=== PATIENT | female | born 1965 | race Caucasian/White ===

== ENCOUNTER 2017-11-28 14:01 | Emergency (ER) | payer MEDICAID ==
[~2017-11-28 14:01] MED LIST: ATEN-41 PO; CLON1TAB4 PO
[2017-11-28 14:31] VITALS: BP_SYST 127
[2017-11-28 15:10] LABS: BASOPHILS % (AUTO) 0.3 % (0.0-2.0); EOSINOPHILS # (AUTO) 0.1 K/uL (0.0-0.4); HEMATOCRIT 47.8 % (36-48); HEMOGLOBIN 15.6 g/dL (12.0-16.0); LYMPHOCYTES # (AUTO) 2.7 K/uL (1.0-5.5); LYMPHOCYTES % (AUTO) 35.3 % (20.5-51.5); MEAN CORPUSCULAR HEMOGLOBIN 31 pg (27-31); MEAN CORPUSCULAR HGB CONC 33 % (32-36); MEAN CORPUSCULAR VOLUME 96 fL (79.0-98.0); MONOCYTES # (AUTO) 0.7 K/uL (0.0-1.0); MONOCYTES % (AUTO) 9.4 % (1.7-9.3); NEUTROPHILS # (AUTO) 4.1 K/uL (1.8-7.7); PLATELET COUNT (AUTO) 259 K/uL (130-430); RED BLOOD CELL COUNT(AUTO) 5.01 MIL/uL (4.2-6.2); WHITE BLOOD COUNT (AUTO) 7.6 K/uL (4.8-10.8)
[2017-11-28 15:30] LABS: CALCIUM 9.4 mg/dL (8.4-11.0); CREATININE 0.57 mg/dL (0.55-1.30); POTASSIUM 3.7 mmol/L (3.5-5.1)
[2017-11-28 15:35] LABS: ALBUMIN 4.1 g/dL (3.4-4.8); TOTAL BILIRUBIN 0.4 mg/dL (0.0-1.0)
[2017-11-28 15:48] LABS: BILIRUBIN,URINE NEGATIVE (NEGATIVE); BLOOD, URINE NEGATIVE (NEGATIVE); CLARITY/URINE CLEAR (CLEAR); COLOR,URINE STRAW (YELLOW); GLUCOSE,URINE NEGATIVE (NEGATIVE); KETONES,URINE NEGATIVE (NEGATIVE); LEUKOCYTE ESTERASE ,URINE NEGATIVE (NEGATIVE); NITRITE, URINE NEGATIVE (NEGATIVE); PROTEIN URINE NEGATIVE (NEGATIVE); UROBILINOGEN,URINE 0.2 (0.2-1.0)
[2017-11-28] MEDS ORDERED: clonazePAM 0.5 MG TABLET PO ONE (16:00)
[2017-11-28 16:55] VITALS: BP_SYST 124
== END 2017-11-28 16:53 | disposition home or self-care (01) ==
LOC: SED 14:01
DX: F41.9 Anxiety disorder, unspecified (principal); I10 Essential (primary) hypertension
CPT/HCPCS: 36415; 80053; 81003; 83690-TC; 85025; 99284

== ENCOUNTER 2018-01-07 09:43 | Emergency (ER) | payer MEDICAID ==
[~2018-01-07] VITALS: Ht 165.1 cm; Wt 89.8 kg
[2018-01-07 09:47] VITALS: BP_SYST 136
[2018-01-07 10:27] VITALS: BP_SYST 130
== END 2018-01-07 10:27 | disposition home or self-care (01) ==
LOC: SED 09:43
DX: K52.9 Noninfective gastroenteritis and colitis, unspecified (principal); F41.9 Anxiety disorder, unspecified; I10 Essential (primary) hypertension; F17.210 Nicotine dependence, cigarettes, uncomplicated; Z90.49 Acquired absence of other specified parts of digestive tract; Z98.51 Tubal ligation status
CPT/HCPCS: 99283

== ENCOUNTER 2018-01-20 09:40 | Emergency (ER) | payer MEDICAID ==
[~2018-01-20] VITALS: Ht 162.6 cm; Wt 78.0 kg
[2018-01-20] MEDS ORDERED: NACL 0.9% 1,000 ML IV ONE (09:48)
[2018-01-20 09:49] VITALS: BP_SYST 140
[2018-01-20 10:21] LABS: BASOPHILS % (AUTO) 0.5 % (0.0-2.0); EOSINOPHILS # (AUTO) 0.1 K/uL (0.0-0.4); EOSINOPHILS % (AUTO) 0.7 % (0.0-4.0); HEMATOCRIT 49.1 % (36-48); HEMOGLOBIN 16.1 g/dL (12.0-16.0); LYMPHOCYTES # (AUTO) 2.2 K/uL (1.0-5.5); LYMPHOCYTES % (AUTO) 28.2 % (20.5-51.5); MEAN CORPUSCULAR HEMOGLOBIN 31 pg (27-31); MEAN CORPUSCULAR HGB CONC 33 % (32-36); MEAN CORPUSCULAR VOLUME 95 fL (79.0-98.0); MONOCYTES # (AUTO) 0.5 K/uL (0.0-1.0); MONOCYTES % (AUTO) 6.3 % (1.7-9.3); NEUTROPHILS % (AUTO) 64.3 % (40.0-70.0); PLATELET COUNT (AUTO) 207 K/uL (130-430); RED BLOOD CELL COUNT(AUTO) 5.18 MIL/uL (4.2-6.2); RED CELL DISTRIBUTION WIDTH 13.1 % (9.0-15.0); WHITE BLOOD COUNT (AUTO) 7.8 K/uL (4.8-10.8)
[2018-01-20 10:30] LABS: BILIRUBIN,URINE NEGATIVE (NEGATIVE); BLOOD, URINE NEGATIVE (NEGATIVE); CLARITY/URINE SL HAZY (CLEAR); COLOR,URINE YELLOW (YELLOW); GLUCOSE,URINE NEGATIVE (NEGATIVE); KETONES,URINE NEGATIVE (NEGATIVE); LEUKOCYTE ESTERASE ,URINE NEGATIVE (NEGATIVE); NITRITE, URINE NEGATIVE (NEGATIVE); PH,URINE 5.5 (5.0-8.0); PROTEIN URINE NEGATIVE (NEGATIVE); UROBILINOGEN,URINE 0.2 (0.2-1.0)
[2018-01-20 10:38] LABS: ANION GAP 5 (5-15); CALCIUM 9.4 mg/dL (8.4-11.0); CHLORIDE 98 mmol/L (98-107); CREATININE 0.77 mg/dL (0.55-1.30); GLUCOSE 97 mg/dL (70-99); SODIUM SERUM 134 mmol/L (136-145); UREA NITROGEN, BLOOD 7 mg/dL (8-21)
[2018-01-20 10:40] LABS: ALANINE AMINOTRANSFERASE 31 U/L (12-78); ALBUMIN 4.2 g/dL (3.4-4.8); AMYLASE 42 U/L (0-100); ASPARTATE AMINOTRANSFERASE 21 U/L (10-37); GFR AFRICAN AMERICAN 101 mL/min (>90); LIPASE 57 U/L (73-393); TOTAL BILIRUBIN 0.5 mg/dL (0.0-1.0)
[2018-01-20 10:42] LABS: ALCOHOL, BLOOD < 3 mg/dL (<10)
[2018-01-20 11:05] LABS: BARBITURATE, URINE NEGATIVE (NEG <=200); BENZODIAZEPINE, URINE POSITIVE (NEG <=150); METHAMPHETAMINES SCREEN,URINE NEGATIVE (NEG <=500); URINE AMPHETAMINE NEGATIVE (NEG <=500); URINE METHADONE NEGATIVE (NEG <=200)
[2018-01-20 11:06] LABS: CANNABINOID, URINE NEGATIVE (NEG <=50); COCAINE, URINE NEGATIVE (NEG <=150); OPIATE, URINE NEGATIVE (NEG <=100); PHENCYCLIDINE SCREEN,URINE NEGATIVE (NEG <=25); UR TRICYCLIC ANTIDEPRESSANTS NEGATIVE (NEG <=300); URINE OXYCODONE SCREEN NEGATIVE (NEG <=100); URINE PROPOXYPHENE SCREEN NEGATIVE (NEG <=300)
[2018-01-20 11:42] VITALS: BP_SYST 137
== END 2018-01-20 11:40 | disposition home or self-care (01) ==
LOC: SED 09:40
DX: J11.1 Influenza due to unidentified influenza virus with other respiratory manifestations (principal); F41.9 Anxiety disorder, unspecified; I10 Essential (primary) hypertension; E78.5 Hyperlipidemia, unspecified; Z76.5 Malingerer [conscious simulation]; Z90.49 Acquired absence of other specified parts of digestive tract; Z90.710 Acquired absence of both cervix and uterus; Z98.51 Tubal ligation status
CPT/HCPCS: 36415; 80053; 80307; 81003; 82150; 83690; 84484; 85025; 86710; 96360; 99284; G0482; J7030

== ENCOUNTER 2018-06-18 16:33 | Emergency (ER) | payer MEDICAID ==
[~2018-06-18] VITALS: Ht 162.6 cm; Wt 95.3 kg
[~2018-06-18 16:33] MED LIST changes: -CLON1TAB4 PO; +CLON1TAB5 PO
[2018-06-18 16:45] VITALS: BP_SYST 116
[2018-06-18] MEDS ORDERED: KETOROLAC TROMETHAMINE 60 MG/2 ML VIAL IM ONE (17:30)
[2018-06-18 17:32] LABS: BILIRUBIN,URINE NEGATIVE (NEGATIVE); BLOOD, URINE NEGATIVE (NEGATIVE); CLARITY/URINE CLEAR (CLEAR); COLOR,URINE YELLOW (YELLOW); GLUCOSE,URINE NEGATIVE (NEGATIVE); KETONES,URINE NEGATIVE (NEGATIVE); LEUKOCYTE ESTERASE ,URINE NEGATIVE (NEGATIVE); NITRITE, URINE NEGATIVE (NEGATIVE); PH,URINE 5.5 (5.0-8.0); PROTEIN URINE NEGATIVE (NEGATIVE); UROBILINOGEN,URINE 0.2 (0.2-1.0)
[2018-06-18 18:19] VITALS: BP_SYST 114
== END 2018-06-18 18:14 | disposition home or self-care (01) ==
LOC: SED 16:33
DX: G43.709 Chronic migraine without aura, not intractable, without status migrainosus (principal); F41.9 Anxiety disorder, unspecified; E78.5 Hyperlipidemia, unspecified; F17.200 Nicotine dependence, unspecified, uncomplicated; I10 Essential (primary) hypertension
CPT/HCPCS: 81003; 81025; 96372; 99283; J1885

== ENCOUNTER 2018-12-25 09:47 | Emergency (ER) | payer MEDICAID ==
[~2018-12-25] VITALS: Ht 162.6 cm; Wt 81.6 kg
[~2018-12-25 09:47] MED LIST changes: +CLON1TAB12 PO; -CLON1TAB5 PO
[2018-12-25 09:57] VITALS: BP_SYST 154
[2018-12-25] MEDS ORDERED: methylPREDNISolone SOD SUCC/PF 62.5 MG/ML VIAL IVP ONE (10:45)
[2018-12-25] MEDS ORDERED: IPRATROPIUM/ALBUTEROL SULFATE 3 ML AMPUL.NEB (DUONEB) INH ONE ×2 (10:45→12:30)
[2018-12-25 11:18] LABS: HEMATOCRIT 46.7 % (36-48); HEMOGLOBIN 15.4 g/dL (12.0-16.0); MEAN CORPUSCULAR HEMOGLOBIN 32 pg (27-31); MEAN CORPUSCULAR HGB CONC 33 % (32-36); MEAN CORPUSCULAR VOLUME 95 fL (79.0-98.0); NEUTROPHILS % (AUTO) 61.1 % (40.0-70.0); PLATELET COUNT (AUTO) 183 K/uL (130-430); RED CELL DISTRIBUTION WIDTH 13.9 % (9.0-15.0); WHITE BLOOD COUNT (AUTO) 6.6 K/uL (4.8-10.8)
[2018-12-25 11:19] LABS: BASOPHILS # (AUTO) 0.1 K/uL (0.0-0.2); BASOPHILS % (AUTO) 0.8 % (0.0-2.0); EOSINOPHILS # (AUTO) 0.1 K/uL (0.0-0.4); EOSINOPHILS % (AUTO) 1.1 % (0.0-4.0); LYMPHOCYTES # (AUTO) 1.9 K/uL (1.0-5.5); LYMPHOCYTES % (AUTO) 28.9 % (20.5-51.5); MONOCYTES # (AUTO) 0.5 K/uL (0.0-1.0); MONOCYTES % (AUTO) 8.1 % (1.7-9.3)
[2018-12-25 11:24] LABS: ANION GAP 11 (5-15); CALCIUM 10.1 mg/dL (8.4-11.0); CHLORIDE 105 mmol/L (98-107); GLUCOSE 104 mg/dL (70-99); POTASSIUM 3.8 mmol/L (3.5-5.1); SODIUM SERUM 143 mmol/L (136-145); UREA NITROGEN, BLOOD 14 mg/dL (8-21)
[2018-12-25 11:25] LABS: GFR AFRICAN AMERICAN 67 mL/min (>90)
[2018-12-25 11:32] LABS: ALANINE AMINOTRANSFERASE 34 U/L (12-78); ASPARTATE AMINOTRANSFERASE 25 U/L (10-37); TOTAL BILIRUBIN 0.5 mg/dL (0.0-1.0)
[2018-12-25] MEDS ORDERED: KETOROLAC TROMETHAMINE 30 MG VIAL IM ONE (11:45)
[2018-12-25] MEDS ORDERED: KETOROLAC TROMETHAMINE 30 MG VIAL IVP ONE (11:45)
[2018-12-25] MEDS ORDERED: AZITHROMYCIN 250 MG TABLET PO ONE (12:30)
[2018-12-25 13:33] VITALS: BP_SYST 135
== END 2018-12-25 13:33 | disposition home or self-care (01) ==
LOC: SED 09:47
DX: J20.9 Acute bronchitis, unspecified (principal); F17.210 Nicotine dependence, cigarettes, uncomplicated; I25.2 Old myocardial infarction; I10 Essential (primary) hypertension; F41.9 Anxiety disorder, unspecified; E78.5 Hyperlipidemia, unspecified; Z79.899 Other long term (current) drug therapy; Z71.6 Tobacco abuse counseling
CPT/HCPCS: 36415; 71045; 80053; 84484; 85025; 93005; 94664; 96374; 96375; 99284; J1885; J2930; J7620; Q0144

== ENCOUNTER 2019-10-22 16:07 | Emergency (ER) | payer MEDICAID ==
[~2019-10-22] VITALS: Ht 162.6 cm; Wt 72.6 kg
[2019-10-22 16:15] VITALS: BP_SYST 155
--- NOTE | 2019-10-22 16:24 | NUR ---
Patient to ER bed 8 to gown for evaluation. Side rails up. Report given to CELESTE HERNANDEZ
--- NOTE | 2019-10-22 16:32 | NUR ---
Pt brought by self, A&Ox4 , pt presents to ER with bodyaches, anxiety and SOB, skin pink and warm,cap refill <3, VSS.
--- NOTE | 2019-10-22 16:40 | NUR ---
Dr Babb at bedside examining patient
[2019-10-22] MEDS ORDERED: ASPIRIN 81 MG TAB.CHEW PO ONE (17:00)
[2019-10-22] MEDS ORDERED: LORazepam 2 MG/ML VIAL IVP ONE (17:00)
--- NOTE | 2019-10-22 17:15 | NUR ---
Pt medicated as ordered for anxiety,well tolerated.
[2019-10-22 17:43] LABS: BASOPHILS % (AUTO) 0.5 % (0.0-2.0); EOSINOPHILS # (AUTO) 0.1 K/uL (0.0-0.4); EOSINOPHILS % (AUTO) 0.8 % (0.0-4.0); HEMATOCRIT 44.7 % (36-48); HEMOGLOBIN 15.3 g/dL (12.0-16.0); LYMPHOCYTES # (AUTO) 2.8 K/uL (1.0-5.5); LYMPHOCYTES % (AUTO) 38.5 % (20.5-51.5); MEAN CORPUSCULAR HEMOGLOBIN 34 pg (27-31); MEAN CORPUSCULAR HGB CONC 34 % (32-36); MEAN CORPUSCULAR VOLUME 99 fL (79.0-98.0); MONOCYTES # (AUTO) 0.5 K/uL (0.0-1.0); NEUTROPHILS # (AUTO) 3.9 K/uL (1.8-7.7); NEUTROPHILS % (AUTO) 53.2 % (40.0-70.0); PLATELET COUNT (AUTO) 199 K/uL (130-430); RED BLOOD CELL COUNT(AUTO) 4.53 MIL/uL (4.2-6.2); RED CELL DISTRIBUTION WIDTH 13.4 % (9.0-15.0); WHITE BLOOD COUNT (AUTO) 7.4 K/uL (4.8-10.8)
--- NOTE | 2019-10-22 18:05 | NUR ---
Pt speaking in the phone at this time, ROBERTO CARLOS
[2019-10-22 18:14] LABS: ALBUMIN 3.9 g/dL (3.4-4.8); CALCIUM 9.1 mg/dL (8.4-11.0); CREATININE 0.8 mg/dL (0.55-1.30); POTASSIUM 3.4 mmol/L (3.5-5.1); TOTAL BILIRUBIN 0.5 mg/dL (0.0-1.0)
[2019-10-22] MEDS ORDERED: PROCHLORPERAZINE EDISYLATE 10 MG/2 ML VIAL IVP ONE (18:30)
[2019-10-22] MEDS ORDERED: DIPHENOXYLATE HCL/ATROP SULF 2.5 MG TAB PO ONE (18:30)
[2019-10-22] MEDS ORDERED: KETOROLAC TROMETHAMINE 30 MG VIAL IVP ONE (18:30)
[2019-10-22 19:09] VITALS: BP_SYST 144
--- NOTE | 2019-10-22 19:11 | NUR ---
Patient does not wish to proceed with medical care recommended by Dr Babb . Patient given information related to possible complications, up to and including , which could occur as a result of leaving hospital at this time. Patient verbalizes understanding of risks involved leaving against medical advice. Patient has signed AMA form.
== END 2019-10-22 19:09 | disposition left against medical advice (07) ==
LOC: SED 16:07
DX: R07.9 Chest pain, unspecified (principal); R19.7 Diarrhea, unspecified; I10 Essential (primary) hypertension; I25.2 Old myocardial infarction; F41.9 Anxiety disorder, unspecified; F17.210 Nicotine dependence, cigarettes, uncomplicated
CPT/HCPCS: 36415; 71045; 80053; 82550; 83880; 84484; 85025; 93005; 96374; 96375; 99284; J0780; J1885; J2060

== ENCOUNTER 2019-12-09 11:44 | Emergency (ER) | payer MEDICAID ==
[~2019-12-09] VITALS: Ht 162.6 cm; Wt 68.0 kg
[2019-12-09 12:26] VITALS: BP_SYST 122
--- NOTE | 2019-12-09 12:43 | NUR ---
Patient to ER bed 08 to gown for evaluation. Side rails up.
--- NOTE | 2019-12-09 12:44 | NUR ---
Patient arrived in the ED c/o cough and congestion that started 3-4 days ago. Patient also stated she left her Ativan at her sister's house and is now short of 10 pills. Denied any chest pain or shortness of breath. Denied any fevers, nausea, vomiting, or chills. Patient is alert and oriented x4, respirations even and unlabored, speaking in full sentences, ambulating with a steady gait. VSS, pain level 6/10. Informed of wait time. Instructed to notify ED staff for any changes in condition or worsening of symptoms. Patient verbalized understanding.
--- NOTE | 2019-12-09 12:48 | NUR ---
Patient ambulated to the bathroom with a steady gait. Urine specimen collected.
--- NOTE | 2019-12-09 13:25 | NUR ---
ER DAI Mullen at bedside examining patient.
[2019-12-09] MEDS ORDERED: IPRATROPIUM/ALBUTEROL SULFATE 3 ML AMPUL.NEB (DUONEB) INH ONE (13:30)
--- NOTE | 2019-12-09 13:45 | NUR ---
AMA form signed.
[2019-12-09 13:48] VITALS: BP_SYST 122
--- NOTE | 2019-12-09 13:54 | NUR ---
Patient does not wish to proceed with medical care recommended by ER TRUCK [facility]OP Suzanne Mullen. Patient given information related to possible complications, up to and including , which could occur as a result of leaving hospital at this time. Patient verbalizes understanding of risks involved leaving against medical advice. Patient has signed AMA form.
== END 2019-12-09 13:54 | disposition home or self-care (01) ==
LOC: SED 11:44
DX: R05 Cough (principal); F41.9 Anxiety disorder, unspecified; E78.5 Hyperlipidemia, unspecified; I10 Essential (primary) hypertension; F17.210 Nicotine dependence, cigarettes, uncomplicated; Z86.73 Personal history of transient ischemic attack (TIA), and cerebral infarction without residual deficits; Z90.49 Acquired absence of other specified parts of digestive tract; Z90.710 Acquired absence of both cervix and uterus
CPT/HCPCS: 99281; 99283

== ENCOUNTER 2019-12-15 08:00 | Emergency (ER) | payer MEDICAID ==
[~2019-12-15] VITALS: Ht 162.6 cm; Wt 66.7 kg
[2019-12-15 08:10] VITALS: BP_SYST 164
[2019-12-15] MEDS ORDERED: IPRATROPIUM BROM 0.5 MG/2.5 ML VIAL.NEB (ATROVENT) INH ONE (08:44)
[2019-12-15] MEDS ORDERED: ALBUTEROL SULFATE 0.083% 2.5 MG/3 ML VIAL.NEB INH ONE (08:44)
[2019-12-15] MEDS ORDERED: ONDANSETRON HCL 4 MG/2 ML VIAL IVP ONE (08:45)
[2019-12-15] MEDS ORDERED: LORazepam 2 MG/ML VIAL IVP ONE (08:45)
[2019-12-15] MEDS ORDERED: NACL 0.9% 1,000 ML IV ONE (08:45)
[2019-12-15 08:56] LABS: BASOPHILS % (AUTO) 0.6 % (0.0-2.0); EOSINOPHILS % (AUTO) 0.4 % (0.0-4.0); HEMATOCRIT 45.2 % (36-48); HEMOGLOBIN 15.5 g/dL (12.0-16.0); LYMPHOCYTES # (AUTO) 1.6 K/uL (1.0-5.5); LYMPHOCYTES % (AUTO) 24.8 % (20.5-51.5); MEAN CORPUSCULAR HEMOGLOBIN 34 pg (27-31); MEAN CORPUSCULAR HGB CONC 34 % (32-36); MEAN CORPUSCULAR VOLUME 98 fL (79.0-98.0); MONOCYTES # (AUTO) 0.4 K/uL (0.0-1.0); MONOCYTES % (AUTO) 6.1 % (1.7-9.3); NEUTROPHILS # (AUTO) 4.5 K/uL (1.8-7.7); NEUTROPHILS % (AUTO) 68.1 % (40.0-70.0); PLATELET COUNT (AUTO) 238 K/uL (130-430); RED CELL DISTRIBUTION WIDTH 14.3 % (9.0-15.0); WHITE BLOOD COUNT (AUTO) 6.5 K/uL (4.8-10.8)
[2019-12-15 09:12] LABS: ANION GAP 14 (5-15); CHLORIDE 103 mmol/L (98-107); CREATININE 0.54 mg/dL (0.55-1.30); GLUCOSE 107 mg/dL (70-99); POTASSIUM 3.2 mmol/L (3.5-5.1); SODIUM SERUM 142 mmol/L (136-145); UREA NITROGEN, BLOOD 9 mg/dL (8-21)
[2019-12-15 09:15] LABS: GFR AFRICAN AMERICAN 151 mL/min (>90)
[2019-12-15 09:17] LABS: ALANINE AMINOTRANSFERASE 19 U/L (12-78); ALBUMIN 3.7 g/dL (3.4-4.8); ASPARTATE AMINOTRANSFERASE 17 U/L (10-37); TOTAL BILIRUBIN 0.5 mg/dL (0.0-1.0)
[2019-12-15 09:19] LABS: ALCOHOL, BLOOD < 3 mg/dL (<10)
[2019-12-15 09:19] LABS: BILIRUBIN,URINE NEGATIVE (NEGATIVE); CLARITY/URINE CLEAR (CLEAR); COLOR,URINE YELLOW (YELLOW); GLUCOSE,URINE NEGATIVE (NEGATIVE); KETONES,URINE NEGATIVE (NEGATIVE); LEUKOCYTE ESTERASE ,URINE NEGATIVE (NEGATIVE); NITRITE, URINE NEGATIVE (NEGATIVE); PROTEIN URINE NEGATIVE (NEGATIVE); UROBILINOGEN,URINE 0.2 (0.2-1.0)
[2019-12-15 09:22] LABS: BLOOD, URINE TRACE (NEGATIVE)
[2019-12-15 09:40] LABS: BACTERIA,URINE None Seen /HPF (None Seen); WBC,URINE NONE SEEN /HPF (0-3)
[2019-12-15] MEDS ORDERED: KETOROLAC TROMETHAMINE 30 MG VIAL IVP ONE (11:00)
[2019-12-15 11:29] VITALS: BP_SYST 129
== END 2019-12-15 11:31 | disposition home or self-care (01) ==
LOC: SED 08:00
DX: J44.1 Chronic obstructive pulmonary disease with (acute) exacerbation (principal); R19.7 Diarrhea, unspecified; F41.9 Anxiety disorder, unspecified; F17.200 Nicotine dependence, unspecified, uncomplicated; I10 Essential (primary) hypertension; E78.5 Hyperlipidemia, unspecified; Z90.49 Acquired absence of other specified parts of digestive tract; Z71.6 Tobacco abuse counseling
CPT/HCPCS: 36415; 70450; 71045; 80053; 81000; 85025; 94640; 96361; 96374; 96375; 99285; G0482; J1885; J2060; J2405; J7030; J7613

== ENCOUNTER 2019-12-16 10:03 | Emergency (ER) | payer MEDICAID ==
[~2019-12-16] VITALS: Ht 165.1 cm; Wt 81.6 kg
[2019-12-16 10:03] VITALS: BP_SYST 153
[2019-12-16] MEDS ORDERED: ONDANSETRON 4 MG ODT TAB PO ONE (10:30)
[2019-12-16] MEDS ORDERED: LORazepam 2 MG/ML VIAL IM ONE (10:30)
[2019-12-16 11:05] VITALS: BP_SYST 153
== END 2019-12-16 11:05 | disposition home or self-care (01) ==
LOC: SED 10:03
DX: F41.9 Anxiety disorder, unspecified (principal); I10 Essential (primary) hypertension; E78.5 Hyperlipidemia, unspecified; F17.200 Nicotine dependence, unspecified, uncomplicated; Z86.73 Personal history of transient ischemic attack (TIA), and cerebral infarction without residual deficits; Z71.6 Tobacco abuse counseling
CPT/HCPCS: 96374; 99283; J2060; Q0162

== ENCOUNTER 2020-01-09 11:54 | Emergency (ER) | payer MEDICAID ==
[~2020-01-09] VITALS: Ht 162.6 cm; Wt 70.3 kg
--- NOTE | 2020-01-09 12:50 | NUR ---
ER at bedside examining patient.
--- NOTE | 2020-01-09 12:50 | NUR ---
PATIENT TO ER #2
[2020-01-09 12:54] VITALS: BP_SYST 137
[2020-01-09] MEDS ORDERED: METO50CA PO (12:54)
[2020-01-09] MEDS ORDERED: ASPI-524 PO (12:54)
[2020-01-09] MEDS ORDERED: SIMV20TA6 PO (12:54)
--- NOTE | 2020-01-09 13:00 | NUR ---
pt arrives from home w/ c/o increasing anxiety. No other c/o at the moment
--- NOTE | 2020-01-09 13:10 | NUR ---
medicated the pt w/ Ativan per MD order/ Will reassess.
[2020-01-09] MEDS: LORazepam 2 MG/ML VIAL IM ONE (13:14)
--- NOTE | 2020-01-09 13:19 | NUR ---
Patient given written and verbal discharge instructions and verbalizes understanding. ER MD discussed with patient the results and treatment provided. Patient in stable condition. ID arm band removed. Rx of Ativan given. Patient educated on pain management and to follow up with PMD. Pain Scale 0/10. Opportunity for questions provided and answered. Medication side effect fact sheet provided.
[2020-01-09 13:20] VITALS: BP_SYST 137
== END 2020-01-09 13:19 | disposition home or self-care (01) ==
LOC: SED 11:54
DX: F41.9 Anxiety disorder, unspecified (principal); I10 Essential (primary) hypertension; I25.2 Old myocardial infarction; E78.5 Hyperlipidemia, unspecified; K27.9 Peptic ulcer, site unspecified, unspecified as acute or chronic, without hemorrhage or perforation
CPT/HCPCS: 96372; 99283; J2060

== ENCOUNTER 2020-06-24 12:17 | Emergency (ER) | payer MEDICAID ==
[~2020-06-24] VITALS: Ht 162.6 cm; Wt 75.3 kg
[2020-06-24 12:17] VITALS: BP_SYST 166
[~2020-06-24 12:17] MED LIST changes: +ASPI-524 PO; -ATEN-41 PO; -CLON1TAB12 PO; +METO50CA PO; +SIMV-43 PO
[2020-06-24] MEDS: LORazepam 2 MG/ML VIAL IM ONE (12:38)
[2020-06-24] MEDS: ONDANSETRON 4 MG ODT TAB PO ONE (12:38)
[2020-06-24] MEDS ORDERED: ONDANSETRON 4 MG ODT TAB ONE (12:55)
[2020-06-24] MEDS: PROCHLORPERAZINE EDISYLATE 10 MG/2 ML VIAL IM ONE (13:39)
[2020-06-24 14:19] VITALS: BP_SYST 166
== END 2020-06-24 14:21 | disposition home or self-care (01) ==
LOC: SED 12:17
DX: F13.239 Sedative, hypnotic or anxiolytic dependence with withdrawal, unspecified (principal); F41.9 Anxiety disorder, unspecified; I10 Essential (primary) hypertension; Z76.0 Encounter for issue of repeat prescription
CPT/HCPCS: 96372; 99284; J0780; J2060; Q0162

== ENCOUNTER 2020-07-13 08:04 | Emergency (ER) | payer MEDICAID ==
[~2020-07-13] VITALS: Ht 162.6 cm; Wt 82.1 kg
[2020-07-13 08:08] VITALS: BP_SYST 147
--- NOTE | 2020-07-13 08:14 | NUR ---
Patient to ER bed 5 to gown for evaluation. Side rails up. Report given to MARY Haile.
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
--- NOTE | 2020-07-13 08:20 | NUR ---
ER Dr. Kumar at bedside examining patient.
[2020-07-13] MEDS ORDERED: ONDANSETRON 4 MG ODT TAB PO ONE (08:30)
[2020-07-13] MEDS ORDERED: LORazepam 2 MG/ML VIAL IM ONE (08:30)
[2020-07-13 08:38] VITALS: BP_SYST 147
--- NOTE | 2020-07-13 08:39 | NUR ---
Patient given written and verbal discharge instructions and verbalizes understanding. ER MD discussed with patient the results and treatment provided. Patient in stable condition. ID arm band removed. Rx of Ativan and Zofran given. Patient educated on pain management and to follow up with PMD. Pain Scale 0. Opportunity for questions provided and answered. Medication side effect fact sheet provided.
== END 2020-07-13 08:39 | disposition home or self-care (01) ==
LOC: SED 08:04
DX: F13.229 Sedative, hypnotic or anxiolytic dependence with intoxication, unspecified (principal); F41.9 Anxiety disorder, unspecified; E78.5 Hyperlipidemia, unspecified; I10 Essential (primary) hypertension; I25.2 Old myocardial infarction; Z79.899 Other long term (current) drug therapy; Z79.82 Long term (current) use of aspirin
CPT/HCPCS: 96372; 99283; J2060; Q0162

== ENCOUNTER 2020-09-17 16:40 | Emergency (ER) | payer MEDICAID, SELFPAY ==
[~2020-09-17] VITALS: Ht 160 cm; Wt 78.0 kg
[2020-09-17 17:13] VITALS: BP_SYST 130
[2020-09-17 19:23] VITALS: BP_SYST 130
== END 2020-09-17 19:23 | disposition home or self-care (01) ==
LOC: SED 16:40
DX: U07.1 COVID-19 (principal); F41.9 Anxiety disorder, unspecified; E78.5 Hyperlipidemia, unspecified; I11.0 Hypertensive heart disease with heart failure; I50.9 Heart failure, unspecified; Z90.49 Acquired absence of other specified parts of digestive tract; Z79.899 Other long term (current) drug therapy; Z79.82 Long term (current) use of aspirin
CPT/HCPCS: 99283; U0003; C9803

== ENCOUNTER 2020-09-29 08:23 | Emergency (ER) | payer MEDICAID, SELFPAY ==
[~2020-09-29] VITALS: Ht 162.6 cm; Wt 75.3 kg
[2020-09-29 08:23] VITALS: BP_SYST 134
[2020-09-29] MEDS: LORazepam 1 MG TABLET PO ONE (09:00)
[2020-09-29 09:15] VITALS: BP_SYST 134
== END 2020-09-29 09:13 | disposition home or self-care (01) ==
LOC: SED 08:23
DX: F41.9 Anxiety disorder, unspecified (principal); I25.2 Old myocardial infarction; I10 Essential (primary) hypertension; E78.5 Hyperlipidemia, unspecified; F17.200 Nicotine dependence, unspecified, uncomplicated
CPT/HCPCS: 99283